=== PATIENT | male | born 1990 | race Caucasian/White ===

== ENCOUNTER 2018-11-15 14:38 | Emergency (ER) | payer SELFPAY ==
[~2018-11-15] VITALS: Ht 170.2 cm; Wt 90.0 kg
[2018-11-15 14:47] VITALS: BP 126/72; PULSE 77; RESP 16; Ht 170.2 cm; Wt 90.0 kg
== END 2018-11-15 15:35 | disposition left against medical advice (07) ==
LOC: E/R 14:38
DX: Z53.21 Procedure and treatment not carried out due to patient leaving prior to being seen by health care provider (principal)